=== PATIENT | female | born 1970 | race Caucasian/White ===

== ENCOUNTER 2024-07-21 14:53 | Inpatient (IN) | payer OTHER ==
[~2024-07-21] VITALS: Ht 157.5 cm; Wt 72.5 kg
--- NOTE | 2024-07-21 15:21 | ED.PDOC ---
HPI Comments 53 y/o F presents with c/o left-sided chest and shoulder pain. Patient is a poor historian. She reports on progressively worsening symptoms following initial, unprovoked onset 2 days ago. Describes chest pain as waning and shoulder pain being constant. Endorses on chest and shoulder pain being "sharp" in quality and rates it a 6/10 in severity. Shoulder pain worsens when leaning towards her left-side and, occasionally, radiates to her left arm. States on feeling similar to when she had a PE 10 years ago, with exception of shortness of breath symptom absence. Reports no relief or improvement of symptoms with pain medication use. Denies having any nausea, vomiting, shortness of breath, or further associated symptoms. Vitals: temperature of 97.8F, pulse rate of 89, respiratory rate of 20, blood pressure of 141/97, SpO2 of 96%RA Past medical history: PE, Graves' disease, hypothyroidism Past surgical history: denies HPI: Poor Historian. REVIEW OF SYSTEMS: CONSTITUTIONAL: Denies acute: fever, diaphoresis, chills, generalized weakness. HEAD: Denies acute: headache, photophobia Eyes: Denies acute: Double vision, vision loss, eye pain, eye discharge. EARS: Denies acute: tinnitus, hearing loss, ear discharge, ear pain, THROAT: Denies acute: sore throat, swelling, difficulty swallowing , pain with swallowing, change in voice. NECK: Denies acute: neck pain, neck swelling, stiff neck. HEART: Denies acute : palpitations, LUNGS: Denies acute: SOB, wheezing, cough, hemoptysis ABDOMEN: Denies acute: abdominal pain, Nausea, Vomiting, diarrhea, melena , hematemesis, hematochezia SKIN: Denies acute: rash, redness, lesions, itchiness. EXTREMITIES: Denies acute: calf pain, numbness, tingling, weakness, Denies acute: Low back pain. Neuro: Denies acute: focal neurological deficit, motor or sensory focal neurological deficit, tremors, seizure like activity, confusion, dizziness, change in mental status, loss of bowel or bladder function, cauda equina like symptoms. : Denies acute: dysuria, hematuria, flank pain, increase in urinary frequency. PSYCH: Denies acute: hallucination, suicidal ideation, homicidal ideation. FEMALE: Denies acute: abnormal vaginal bleeding, foul odor, unusual discharge. PHYSICAL EXAM: General: ---mild-----acute distress, awake and alert. Head: normocephalic, atraumatic. Neck: supple, trachea is midline, no swelling. Throat: Normal phonation. Eyes:, no erythema, no purulent discharge, no proptosis, no icterus. Heart: regular rate, regular rhythm, no significant murmur appreciated. Lungs: no apparent respiratory distress, Able to speak in full sentences. No wheezing, no rhonchi, no crackles. No stridors Clear to auscultation bilaterally. Abdomen: non tender to palpation, non distended, soft, no guarding, no rebound, + bowel sounds. Neuro: Awake, Alert, oriented to name, self, situation, follows commands GCS=15. Speech is normal. Skin: no petechia, no purpura, no cyanosis, non-pale, not jaundice. Lower extremities: --no - Pitting edema no deformity, no focal swelling, no calf TTP. Makes eye contact. moves all four extremities. Face: no apparent facial droop. Ambulating in the ED independently. ED COURSE: Chief Complaint: Chest Pain Time Seen by MD: 15:00 Reviewed Notes: Nurses Notes, Medications, Allergies Allergies: Coded Allergies: NO KNOWN ALLERGIES (Unverified , 07/21/24) Information Source: Patient Mode of Arrival: Ambulatory EKG EKG : Pulse Rate (adult): 77 [place]: Normal Cardiac Rhythm: NSR Block: None Hypertrophy: None ST: Normal Was a procedure done? Was a procedure done?: No CP Differential Dx Differential Diagnosis: N/A Differential Diagnosis: Other (Ddx include but not limitied to gastritis, musculoskeletal pain, radiculopathy, atypical chest pain, dissection, aneurysm, ACS, unstable angina, hiatal hernia, GERD, anxiety, costochondritis, PE, pneumothroax, neoplasm, cardiac ischemia, drug abuse, anemia.) X-Ray, Labs, Meds, VS Vital Signs Date Time Temp Pulse Resp B/P (MAP) Pulse Ox O2 Delivery O2 Flow Rate FiO2 07/21/24 18:38 77 07/21/24 17:55 74 07/21/24 15:56 77 07/21/24 15:04 97.8 89 20 141/97 (112) 96 97.8 07/21/24 15:03 80 Lab Test 07/21/24 18:00 07/21/24 16:00 07/21/24 15:07 Range/Units Troponin I High Sensitivity < 3 L < 3 L < 3 L </=34 ng/L White Blood Count 9.1 4.4-10.8 10^3/uL Red Blood Count 4.93 4.0-5.20 10^6/uL Hemoglobin 15.0 12.2-16.2 g/dL Hematocrit 44.6 36.0-46.0 % Mean Corpuscular Volume 90.5 80.0-100.0 fL Mean Corpuscular Hemoglobin 30.5 28.0-32.0 pg Mean Corpuscular Hemoglobin Concent 33.7 32.0-36.0 g/dL Red Cell Distribution Width 13.4 11.8-14.3 % Platelet Count 394 140-450 10^3/uL Mean Platelet Volume 7.7 6.9-10.8 fL Neutrophils (%) (Auto) 70.1 37.0-80.0 % Lymphocytes (%) (Auto) 22.0 10.0-50.0 % Monocytes (%) (Auto) 6.8 0.0-12.0 % Eosinophils (%) (Auto) 0.8 0.0-7.0 % Basophils (%) (Auto) 0.3 0.0-2.0 % Neutrophils # (Auto) 6.4 1.6-8.6 10 ^3/uL Lymphocytes # (Auto) 2.0 0.4-5.4 10 ^3/uL Monocytes # (Auto) 0.6 0-1.3 10 ^3/uL Eosinophils # (Auto) 0.1 0-0.8 10 ^3/uL Basophils # (Auto) 0 0-0.2 10 ^3/uL Nucleated Red Blood Cells 0.0 % D-Dimer, Quantitative 0.26 0.0-0.49 mg/L FEU Sodium Level 143 136-145 mmol/L Potassium Level 4.4 3.5-5.1 mmol/L Chloride Level 108 H 98-107 mmol/L Carbon Dioxide Level 27 20-31 mmol/L Anion Gap 8 5-15 Blood Urea Nitrogen 19 9-23 mg/dL Creatinine 0.96 0.550-1.02 mg/dL Glomerular Filtration Rate Calc 71 >90 mL/min BUN/Creatinine Ratio 19.8 10.0-20.0 Serum Glucose 107 H 74-106 mg/dL Lactic Acid Level 1.1 0.4-2.0 mmol/L Calcium Level 10.4 8.7-10.4 mg/dL Total Bilirubin 0.5 0.2-1.0 mg/dL Aspartate Amino Transferase (AST) 23 13-40 U/L Alanine Aminotransferase (ALT) 23 7-40 U/L Alkaline Phosphatase 71 46-116 U/L B-Type Natriuretic Peptide 22.73 0-100 pg/mL Total Protein 7.2 5.7-8.2 g/dL Albumin 4.8 3.2-4.8 g/dL [place] [id number] Ph: [phone] DIAGNOSTIC IMAGING Diagnostic Imaging Report : [id number] Signed PATIENT: ALICE DE JESUS ACCT: [id number] UNIT: [id number] : 1970 LOC: ER ROOM / BED: / AGE / SEX: 53 / F ADM STATUS: REG ER SERVICE [id number] ORDERING PHYSICIAN: MESHA FARRAR DO PROCEDURE(s): CXRP - CHEST PORTABLE REASON: cp ORDER NUMBER(s): [id number], ACCESSION NUMBER(s): [id number] EXAM: XY CHEST PORTABLE TECHNIQUE: Single frontal chest radiograph CLINICAL HISTORY: cp COMPARISON: None Findings/Impression: Frontal chest radiograph demonstrates no acute osseous or superficial soft tissue abnormalities. The trachea is midline. The cardiac silhouette and mediastinum are within normal limits. No pneumothorax, pleural effusions, or consolidations. ATED BY: ALANA TROTTER DO DICTATED DATE/TIME: 07/21/241554 SIGNED BY: ALANA TROTTER DO SIGNED DATE/TIME: 07/21/241554 CC: Time of 1ST Reevaluation: 15:30 Reevaluation 1ST: Unchanged Patient Education/Counseling: Diagnosis, Treatment Family Education/Counseling: No Family Present Comments Patient presented with the above HPI.---cardiac---workup was initiated. patient was found with the above mentioned diagnosis. the following medications were ordered: please refer to order lists of meds and tests obtained by myself Dr. Farrar. Patient ED course and VS have been stabilized. Patient has been reassessed in the ED and remained in a stable condition. Pertinent incidental findings were discussed with the patient and/or family. Patient/family voices understanding and is agreeable with plan. Patient has been observed in the ED adequate length of time to insure improvement/stability. Escalation of care considered: Consideration of escalation to observation or admission Patient was ADMITTED to the medicine team for further evaluation and treatment of their presentation. All the reports of any imaging studies that were ordered by myself were reviewed by myself. Departure 1 Departure Time of Disposition: 15:26 Impression: Primary Impression: Chest pain Disposition: ADMITTED INPATIENT Admit to: Tele Condition: Guarded Discharged With: Self Critical Care Note Critical Care Time?: No Heart Score Heart Score: Heart Score Response (Comments) Value History Moderate Suspicious 1 EKG Normal 0 Age 45-64 1 Risk Factors >3 or Hx ASHD 2 Troponin Normal limit 0 Total 4 I personally scribed for MESHA FARRAR DO ([email or web address]) on 07/21/24 at 15:21. Electronically submitted by Blake Napier ([email or web address]). I personally scribed for MESHA FARRAR DO ([email or web address]) on 07/21/24 at 15:23. Electronically submitted by Blake Napier ([email or web address]). I personally scribed for MESHA FARRAR DO ([email or web address]) on 07/21/24 at 16:11. Electronically submitted by Blake Napier ([email or web address]). I personally scribed for MESHA FARARR DO ([email or web address]) on 07/21/24 at 18:38. Electronically submitted by Blake Napier ([email or web address]). MESHA FARRAR DO Jul 21, 2024 15:21
[2024-07-21 15:47] LABS: Basophils # (auto) 0 10 ^3/uL (0-0.2); Basophils % (auto) 0.3 % (0.0-2.0); Eosinophils # (auto) 0.1 10 ^3/uL (0-0.8); Eosinophils % (auto) 0.8 % (0.0-7.0); Hematocrit 44.6 % (36.0-46.0); Mean Corpuscular Hemoglobin 30.5 pg (28.0-32.0); Mean Corpuscular Hgb Conc. 33.7 g/dL (32.0-36.0); Mean Corpuscular Volume 90.5 fL (80.0-100.0); Monocytes # (auto) 0.6 10 ^3/uL (0-1.3); Monocytes % (auto) 6.8 % (0.0-12.0); Neutrophils # (auto) 6.4 10 ^3/uL (1.6-8.6); Neutrophils % (auto) 70.1 % (37.0-80.0); Platelet Count (auto) 394 10^3/uL (140-450); Red Blood Cells 4.93 10^6/uL (4.0-5.20); Red Cell Distribution Width 13.4 % (11.8-14.3); White Blood Cell 9.1 10^3/uL (4.4-10.8)
--- NOTE | 2024-07-21 15:57 | DVH ---
EXAM: XY CHEST PORTABLE TECHNIQUE: Single frontal chest radiograph CLINICAL HISTORY: cp COMPARISON: None Findings/Impression: Frontal chest radiograph demonstrates no acute osseous or superficial soft tissue abnormalities. The trachea is midline. The cardiac silhouette and mediastinum are within normal limits. No pneumothorax, pleural effusions, or consolidations.
--- NOTE | 2024-07-21 15:57 | ECG ---
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
[2024-07-21 16:01] LABS: Alanine Aminotransferase 23 U/L (7-40); Albumin 4.8 g/dL (3.2-4.8); Alkaline Phosphatase 71 U/L (46-116); Anion Gap 8 (5-15); Aspartate Aminotransferase 23 U/L (13-40); BUN/Creatinine Ratio 19.8 (10.0-20.0); Bilirubin, Total 0.5 mg/dL (0.2-1.0); Blood Urea Nitrogen 19 mg/dL (9-23); Calcium 10.4 mg/dL (8.7-10.4); Carbon Dioxide 27 mmol/L (20-31); Chloride 108 mmol/L (98-107); Glucose 107 mg/dL (74-106); Potassium 4.4 mmol/L (3.5-5.1); Sodium 143 mmol/L (136-145); Total Protein 7.2 g/dL (5.7-8.2)
--- NOTE | 2024-07-21 17:57 | ECG ---
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
--- NOTE | 2024-07-21 18:56 | DVHHP2 ---
Admitting Diagnosis: Chest pain History of Present Illness 53 y/o F presents with c/o left-sided chest and shoulder pain. She reports on progressively worsening symptoms following initial, unprovoked onset 2 days ago. Describes chest pain as waning and shoulder pain being constant. Endorses on chest and shoulder pain being "sharp" in quality and rates it a 6/10 in severity. Shoulder pain worsens when leaning towards her left-side and, occasionally, radiates to her left arm. States on feeling similar to when she had a PE 10 years ago, with exception of shortness of breath symptom absence. Reports no relief or improvement of symptoms with pain medication use. Denies having any nausea, vomiting, shortness of breath, or further associated symptoms. Vitals: temperature of 97.8F, pulse rate of 89, respiratory rate of 20, blood pressure of 141/97, SpO2 of 96%RA Past medical history: PE, Graves' disease, hypothyroidism Past surgical history: denies REVIEW OF SYSTEMS: CONSTITUTIONAL: Denies acute: fever, diaphoresis, chills, generalized weakness. HEAD: Denies acute: headache, photophobia Eyes: Denies acute: Double vision, vision loss, eye pain, eye discharge. EARS: Denies acute: tinnitus, hearing loss, ear discharge, ear pain, THROAT: Denies acute: sore throat, swelling, difficulty swallowing , pain with swallowing, change in voice. NECK: Denies acute: neck pain, neck swelling, stiff neck. HEART: Denies acute : palpitations, LUNGS: Denies acute: SOB, wheezing, cough, hemoptysis ABDOMEN: Denies acute: abdominal pain, Nausea, Vomiting, diarrhea, melena , hematemesis, hematochezia SKIN: Denies acute: rash, redness, lesions, itchiness. EXTREMITIES: Denies acute: calf pain, numbness, tingling, weakness, Denies acute: Low back pain. Neuro: Denies acute: focal neurological deficit, motor or sensory focal neurological deficit, tremors, seizure like activity, confusion, dizziness, change in mental status, loss of bowel or bladder function, cauda equina like symptoms. : Denies acute: dysuria, hematuria, flank pain, increase in urinary frequency. PSYCH: Denies acute: hallucination, suicidal ideation, homicidal ideation. FEMALE: Denies acute: abnormal vaginal bleeding, foul odor, unusual discharge. Allergies: Coded Allergies: NO KNOWN ALLERGIES (Unverified , 07/21/24) Current Medications Current Medications Medications (Trade) Dose Ordered Sig/Erlinda Route PRN Reason Start Time Stop Time Status Last Admin Levothyroxine Sodium (Synthroid Tablet) 125 mcg DAILY PO 07/22/24 10:00 UNV Sodium Chloride (Saline Lock Ns) 10 ml Q8HR IV 07/21/24 22:00 UNV Docusate Sodium (Colace Capsule) 100 mg BIDPRN PRN PO FOR CONSTIPATION 07/21/24 19:00 UNV Acetaminophen (Tylenol Tablet) 650 mg Q6HP PRN PO PAIN SCALE 1-3 OR TEMP>100.4 07/21/24 19:00 UNV Acetaminophen/ Hydrocodone Bitart ([place] 5/325MG Tab) 1 tab Q4HP PRN PO MODERATE PAIN (4-6 PAIN SCALE) 07/21/24 19:00 UNV Hydromorphone HCl (Dilaudid Injection) 0.5 mg Q4HP PRN IV SEVERE PAIN (7-10 PAIN SCALE) 07/21/24 19:00 UNV Ondansetron HCl (Zofran) 4 mg Q4HP PRN IV NAUSEA / VOMITING 07/21/24 19:00 UNV Enoxaparin Sodium (Lovenox) 40 mg DAILY SC 07/22/24 10:00 UNV Nitroglycerin (Ntrostat Sublingual) 0.4 mg Q5MINP PRN SL FOR CHEST PAIN 07/21/24 19:00 UNV Morphine Sulfate 2 mg Q30M PRN IV FOR CHEST PAIN 07/21/24 19:00 UNV Vital Signs Vital Signs Date Time Temp Pulse Resp B/P (MAP) Pulse Ox O2 Delivery O2 Flow Rate FiO2 07/21/24 18:38 77 07/21/24 15:04 97.8 20 141/97 (112) 96 97.8 Physical Exam Generally-73 years old woman, well nourished well developed. Moderate distress HEENT-atraumatic normocephalic Heart-regular rate and rhythm Lungs clear to auscultate bilaterally Abdomen soft nontender nondistended Musculoskeletal-no edema cyanosis Neuro-AO x3, no focal deficits Results Labs Test 07/21/24 18:00 07/21/24 15:07 Range/Units Troponin I High Sensitivity < 3 L </=34 ng/L White Blood Count 9.1 4.4-10.8 10^3/uL Red Blood Count 4.93 4.0-5.20 10^6/uL Hemoglobin 15.0 12.2-16.2 g/dL Hematocrit 44.6 36.0-46.0 % Mean Corpuscular Volume 90.5 80.0-100.0 fL Mean Corpuscular Hemoglobin 30.5 28.0-32.0 pg Mean Corpuscular Hemoglobin Concent 33.7 32.0-36.0 g/dL Red Cell Distribution Width 13.4 11.8-14.3 % Platelet Count 394 140-450 10^3/uL Mean Platelet Volume 7.7 6.9-10.8 fL Neutrophils (%) (Auto) 70.1 37.0-80.0 % Lymphocytes (%) (Auto) 22.0 10.0-50.0 % Monocytes (%) (Auto) 6.8 0.0-12.0 % Eosinophils (%) (Auto) 0.8 0.0-7.0 % Basophils (%) (Auto) 0.3 0.0-2.0 % Neutrophils # (Auto) 6.4 1.6-8.6 10 ^3/uL Lymphocytes # (Auto) 2.0 0.4-5.4 10 ^3/uL Monocytes # (Auto) 0.6 0-1.3 10 ^3/uL Eosinophils # (Auto) 0.1 0-0.8 10 ^3/uL Basophils # (Auto) 0 0-0.2 10 ^3/uL Nucleated Red Blood Cells 0.0 % D-Dimer, Quantitative 0.26 0.0-0.49 mg/L FEU Sodium Level 143 136-145 mmol/L Potassium Level 4.4 3.5-5.1 mmol/L Chloride Level 108 H 98-107 mmol/L Carbon Dioxide Level 27 20-31 mmol/L Anion Gap 8 5-15 Blood Urea Nitrogen 19 9-23 mg/dL Creatinine 0.96 0.550-1.02 mg/dL Glomerular Filtration Rate Calc 71 >90 mL/min BUN/Creatinine Ratio 19.8 10.0-20.0 Serum Glucose 107 H 74-106 mg/dL Lactic Acid Level 1.1 0.4-2.0 mmol/L Calcium Level 10.4 8.7-10.4 mg/dL Total Bilirubin 0.5 0.2-1.0 mg/dL Aspartate Amino Transferase (AST) 23 13-40 U/L Alanine Aminotransferase (ALT) 23 7-40 U/L Alkaline Phosphatase 71 46-116 U/L B-Type Natriuretic Peptide 22.73 0-100 pg/mL Total Protein 7.2 5.7-8.2 g/dL Albumin 4.8 3.2-4.8 g/dL Primary Diagnosis Chest pain to back rule out ACS Plan EKG shows sinus rhythm no ST years segment changes Troponin negative Patient says the pain similar to prior PE 10 years ago D-dimer negative Repeat D-dimer in the morning Check echo of the heart to rule out abnormal wall motion resume Synthroid 125 mg daily Cardiac diet Full code Lovenox for DVT PPI for GI prophylaxis Plan discussed with: Patient Date of Service: Jul 21, 2024 Billing Provider: LUIS HANSON MD Common Visit Codes: 70182-[id number] INP/OBS CARE (MOD) LUIS HANSON MD Jul 21, 2024 18:56
[2024-07-21] MEDS ORDERED: DOCUSATE SOD 100 MG CAP PO PRN (19:00)
[2024-07-21] MEDS ORDERED: HYDROmorphone HCL 2 MG/ML VL/or syr IV PRN (19:00)
[2024-07-21] MEDS ORDERED: MORPHINE SULFATE INJ 2 MG/ml SYRG IV PRN (19:00)
[2024-07-21] MEDS ORDERED: NITROGLYCERIN 0.4 MG SL TAB SL PRN (19:00)
[2024-07-21] MEDS ORDERED: ONDANSETRON HCL 4 MG/2 ML VIAL IV PRN (19:00)
[2024-07-21] MEDS ORDERED: ACETAMINOPHEN 325 MG TAB PO PRN (19:00)
[2024-07-21 21:16] VITALS: O2SAT 97
[2024-07-21] MEDS: SODIUM CHLOR 0.9% PF (SALINE LOCK) 10ML VIAL/SYR IV SCH (22:01)
[2024-07-21 22:36] VITALS: BP 144/86; PULSE 77; RESP 18; TEMP 97.6; O2SAT 100
[2024-07-21 22:59] VITALS: PULSE 77; RESP 18; O2SAT 100
[2024-07-21] MEDS ORDERED: LEVO-849 PO (23:03)
[2024-07-22] VITALS (7 sets, daily range): BP systolic 116–142; BP diastolic 70–94; PULSE 61–90; RESP 15–19; TEMP 96.4–98; O2SAT 95–98
[2024-07-22] MEDS: HYDROcodone-ACET 5/325MG TAB PO PRN (01:56)
[2024-07-22 07:11] LABS: Basophils # (auto) 0 10 ^3/uL (0-0.2); Basophils % (auto) 0.4 % (0.0-2.0); Eosinophils # (auto) 0.1 10 ^3/uL (0-0.8); Eosinophils % (auto) 1.4 % (0.0-7.0); Hematocrit 42.4 % (36.0-46.0); Hemoglobin 14.2 g/dL (12.2-16.2); Lymphocytes # (auto) 2.4 10 ^3/uL (0.4-5.4); Lymphocytes % (auto) 38.2 % (10.0-50.0); Mean Corpuscular Hemoglobin 30.1 pg (28.0-32.0); Mean Corpuscular Hgb Conc. 33.4 g/dL (32.0-36.0); Monocytes # (auto) 0.6 10 ^3/uL (0-1.3); Monocytes % (auto) 9.6 % (0.0-12.0); Neutrophils # (auto) 3.1 10 ^3/uL (1.6-8.6); Neutrophils % (auto) 50.4 % (37.0-80.0); Platelet Count (auto) 369 10^3/uL (140-450); Red Blood Cells 4.71 10^6/uL (4.0-5.20); Red Cell Distribution Width 13.1 % (11.8-14.3); White Blood Cell 6.2 10^3/uL (4.4-10.8)
[2024-07-22 07:17] LABS: Alanine Aminotransferase 19 U/L (7-40); Albumin 4.5 g/dL (3.2-4.8); Alkaline Phosphatase 59 U/L (46-116); Anion Gap 7 (5-15); Aspartate Aminotransferase 18 U/L (13-40); BUN/Creatinine Ratio 24.3 (10.0-20.0); Blood Urea Nitrogen 18 mg/dL (9-23); Carbon Dioxide 27 mmol/L (20-31); Glucose 90 mg/dL (74-106); Potassium 3.8 mmol/L (3.5-5.1); Sodium 142 mmol/L (136-145); Total Protein 6.8 g/dL (5.7-8.2)
[2024-07-22 07:18] LABS: Bilirubin, Total 0.7 mg/dL (0.2-1.0)
[2024-07-22 07:21] LABS: Chloride 108 mmol/L (98-107)
[2024-07-22] MEDS: LEVOTHYROXINE SODIUM 50 MCG TAB PO SCH (09:08)
[2024-07-22] MEDS: ENOXAPARIN SOD 40 MG/0.4 ML SYRINGE SC SCH (09:09)
--- NOTE | 2024-07-22 11:33 | DVHINCON2 ---
Date Seen: Jul 22, 2024 Referring Physician MD Yamilex Reason for Consultation Chest pain History of Present Illness This is a 53-year-old female patient who presents to the emergency room for chief complaint of chest pain. The patient reports that she began having chest pain two days prior to emergency room arrival. She describes the pain as unprovoked, intermittent, sharp in nature, beginning at her left scapula and radiating to the left side of her chest. Associated symptoms include shortness of breath. She came to the emergency room for further evaluation. Initial twelve lead electrocardiogram reveals normal sinus rhythm without any significant ST segment changes. Serial troponin levels have been negative. Significant past medical history includes dyslipidemia, pulmonary embolism, and Graves disease. Past Medical History Past medical history reviewed. No other significant than mentioned above. Past Surgical History Denies any previous surgeries Family History: Patient reports no known family medical history. Family History Family history reviewed. Social History Denies the use of tobacco, alcohol or illicit drugs. Allergies: Coded Allergies: NO KNOWN ALLERGIES (Unverified , 07/21/24) Home Meds Reported Medications Levothyroxine Sodium (SYNTHROID TABLET) 100 Mcg Tb, 125 MCG PO DAILY, TAB 07/21/24 Home Meds Home medications reviewed. Current Medications Current Medications Medications (Trade) Dose Ordered Sig/Erlinda Route PRN Reason Start Time Stop Time Status Last Admin Levothyroxine Sodium (Synthroid Tablet) 125 mcg DAILY PO 07/22/24 10:00 07/22/24 09:08 Sodium Chloride (Saline Lock Ns) 10 ml Q8HR IV 07/21/24 22:00 07/22/24 06:28 Docusate Sodium (Colace Capsule) 100 mg BIDPRN PRN PO FOR CONSTIPATION 07/21/24 19:00 Acetaminophen (Tylenol Tablet) 650 mg Q6HP PRN PO PAIN SCALE 1-3 OR TEMP>100.4 07/21/24 19:00 Acetaminophen/ Hydrocodone Bitart ([place] 5/325MG Tab) 1 tab Q4HP PRN PO MODERATE PAIN (4-6 PAIN SCALE) 07/21/24 19:00 07/22/24 09:26 Hydromorphone HCl (Dilaudid Injection) 0.5 mg Q4HP PRN IV SEVERE PAIN (7-10 PAIN SCALE) 07/21/24 19:00 Ondansetron HCl (Zofran) 4 mg Q4HP PRN IV NAUSEA / VOMITING 07/21/24 19:00 Enoxaparin Sodium (Lovenox) 40 mg DAILY SC 07/22/24 10:00 07/22/24 09:09 Nitroglycerin (Ntrostat Sublingual) 0.4 mg Q5MINP PRN SL FOR CHEST PAIN 07/21/24 19:00 Morphine Sulfate 2 mg Q30M PRN IV FOR CHEST PAIN 07/21/24 19:00 Review of Systems Constitutional: No symptom reported Ears, Nose, & Throat: No symptom reported Eyes: No symptom reported Neurological: No symptoms reported Pulmonary/Respiratory: Shortness of breath Cardiovascular: Chest pain Gastrointestinal: No symptom reported Genitourinary: No symptom reported Musculoskeletal: No symptom reported Skin: No symptom reported Psychiatric: No symptom reported Endocrine: No symptom reported Hematologic/Lymphatic: No symptom reported Vital Signs Vital Signs Date Time Temp Pulse Resp B/P (MAP) Pulse Ox O2 Delivery O2 Flow Rate FiO2 07/22/24 09:17 97.6 66 15 137/89 (105) 97 97.6 07/21/24 22:59 Room Air* 0 21 Physical Exam General Appearance: Cooperative. Well-developed. Well-nourished. No acute distress. Pulmonary/Respiratory: Clear, bilateral breaths sounds. Cardiovascular/Chest: Regular rate and rhythm. Peripheral Pulses: 2+ Radial (R). 2+ Radial (L). 2+ Pedal (R). 2+ Pedal (L) Abdominal Exam: Normal bowel sounds. Ankle Exam: Negative ankle edema Lower extremities: Negative lower extremity edema Neuro/Mental Status: A/OX4, coherent. Thoughts/Psych: Normal thought pattern. Appropriate mood and affect. Good judgment and insight. Appearance: No acute distress. Skin Exam: Normal inspection. Normal color. Warm and dry. Labs/Diagnostic Data Labs Test 07/22/24 06:17 07/21/24 18:00 07/21/24 15:07 Range/Units White Blood Count 6.2 # 4.4-10.8 10^3/uL Red Blood Count 4.71 4.0-5.20 10^6/uL Hemoglobin 14.2 12.2-16.2 g/dL Hematocrit 42.4 36.0-46.0 % Mean Corpuscular Volume 90.0 80.0-100.0 fL Mean Corpuscular Hemoglobin 30.1 28.0-32.0 pg Mean Corpuscular Hemoglobin Concent 33.4 32.0-36.0 g/dL Red Cell Distribution Width 13.1 11.8-14.3 % Platelet Count 369 140-450 10^3/uL Mean Platelet Volume 7.4 6.9-10.8 fL Neutrophils (%) (Auto) 50.4 37.0-80.0 % Lymphocytes (%) (Auto) 38.2 10.0-50.0 % Monocytes (%) (Auto) 9.6 0.0-12.0 % Eosinophils (%) (Auto) 1.4 0.0-7.0 % Basophils (%) (Auto) 0.4 0.0-2.0 % Neutrophils # (Auto) 3.1 1.6-8.6 10 ^3/uL Lymphocytes # (Auto) 2.4 0.4-5.4 10 ^3/uL Monocytes # (Auto) 0.6 0-1.3 10 ^3/uL Eosinophils # (Auto) 0.1 0-0.8 10 ^3/uL Basophils # (Auto) 0 0-0.2 10 ^3/uL Nucleated Red Blood Cells 0.0 % D-Dimer, Quantitative 0.24 0.0-0.49 mg/L FEU Sodium Level 142 136-145 mmol/L Potassium Level 3.8 3.5-5.1 mmol/L Chloride Level 108 H 98-107 mmol/L Carbon Dioxide Level 27 20-31 mmol/L Anion Gap 7 5-15 Blood Urea Nitrogen 18 9-23 mg/dL Creatinine 0.74 0.550-1.02 mg/dL Glomerular Filtration Rate Calc 97 >90 mL/min BUN/Creatinine Ratio 24.3 H 10.0-20.0 Serum Glucose 90 74-106 mg/dL Calcium Level 10.0 8.7-10.4 mg/dL Total Bilirubin 0.7 0.2-1.0 mg/dL Aspartate Amino Transferase (AST) 18 13-40 U/L Alanine Aminotransferase (ALT) 19 7-40 U/L Alkaline Phosphatase 59 46-116 U/L Total Protein 6.8 5.7-8.2 g/dL Albumin 4.5 3.2-4.8 g/dL Troponin I High Sensitivity < 3 L </=34 ng/L Lactic Acid Level 1.1 0.4-2.0 mmol/L B-Type Natriuretic Peptide 22.73 0-100 pg/mL Assessment Chest pain, rule out coronary ischemia Dyslipidemia History of pulmonary embolism History of Graves disease status post radioactive iodine Uncontrolled thyroid function Plan/Recommendation We will continue with the following plan/recommendations (Dr. Flynn): * Transthoracic echocardiogram reveals EF 65% * Chest pain protocol * HEART score: 2 points * Single antiplatelet therapy and lipid-lowering agent * DVT/VTE prophylaxis * Close Cardiac surveillance * Nuclear stress test Patient seen and examined at bedside with . recommends for patient to undergo nuclear stress test. Plan discussed with the patient in full detail, patient is agreeable. We will schedule the patient for a nuclear stress test on 07/23/2024 at soonest availability. Thank you for allowing us to care for this patient. Please call with any questions or concerns. Critical care time spent: 40 minutes This medical document was created using an electronic medical record system with voice recognition software and computerized dictation system. Although this document has been carefully reviewed, there might still be some phonetic and typographical errors. Occasional wrong-word or ``sound-alike substitutions may have occurred due to the inherent limitations of voice recognition software. These areas are purely typographical due to imperfections of the software programs and do not reflect any compromise in the patient's medical care. Please read the chart carefully and recognize, using context, where these substitutions have occurred. Plan discussed with: Patient NYHA Physical activity limitations: NA Date of Service: Jul 22, 2024 Billing Provider: ELYSE ARANDA Cardiology Common Codes: 32745-[id number] INP/OBS CARE (High) Cardiology Consultation Codes: 34021-[id number] CONSULT <45MIN ELYSE ARANDA Jul 22, 2024 11:33
[2024-07-22 13:02] LABS: Magnesium 2.2 mg/dL (1.6-2.6)
--- NOTE | 2024-07-22 14:20 | DVHSR ---
APPROVED REPORT EXAM: Two-dimensional and M-mode echocardiogram with Doppler and color Doppler. Blood Pressure: 116/70 mmHg INDICATION Chest Pain R/O ACS RISK FACTORS Height: 5'2", Weight: 155 DIMENSIONS LVDd4.4 (3.8-5.7cm)LA (2D)3.1 (1.9-4.0cm)Aortic Root2.8 (2.0-3.7cm) LVDs3.0 (2.5-4.0cm)LA (MM) (1.9-4.0cm)Aortic Cusp Exc1.7 (1.5-2.0cm) EF (%) 60.0 (55-70%)Rt. Atrium3.1 (1.9-4.0cm)Asc. Aorta cm IVSd0.9 (0.7-1.1cm)RV (D)3.0 (1.8-2.4cm) PWd0.8 (0.7-1.1cm) Mitral Valve MitralMitral Stenosis E wave1.03m/sMV Mean GR.mmHg A wave0.95m/sMV Peak GR.mmHg E/A ratio1.12D MVAcm2 DECEL [id number] 1/2 Timems Aortic Valve Aortic ValveAortic Stenosis V11.16m/Francine Mean GR.4mmHg V21.41m/Francine Peak GR.8mmHg LVOT Diameter1.8 (1.8-2.4cm)Doppler AVA2.09cm2 Pulmonic Valve V21.03m/s Conclusion LV EF IS 65% AND IS NORMAL NORMAL VALVES NO EFFUSION NORMAL RV FUNCTION
[2024-07-22 15:37] LABS: Amphetamine Screen, Urine Neg (NEGATIVE); Barbiturate Scree,Urine Neg (NEGATIVE); Benzodiazephine Screen, Urine Neg (NEGATIVE); Cannabinoid Screen, Urine Neg (NEGATIVE); Cocaine Screen, Urine Neg (NEGATIVE); Opiate Scree,Urine Pos (NEGATIVE); Phencyclidine Screen, Urine Neg (NEGATIVE)
[2024-07-22] MEDS: ATORVASTATIN 20 MG TAB PO SCH (21:33)
--- NOTE | 2024-07-22 21:45 | DVHPN2 ---
Subjective The patient seen and examined at bedside. Still have chest pain. Reviewed: Care Plan, H&P, Labs, Medications, Previous Orders, Radiology Changes from previous H/P or p: No Changes Objective Vitals Vital Signs Date Time Temp Pulse Resp B/P (MAP) Pulse Ox O2 Delivery O2 Flow Rate FiO2 07/22/24 17:00 98.0 69 17 134/94 (107) 97 98.0 07/22/24 08:00 Room Air* 0 21 Intake/Output Intake and Output 07/22/24 07:00 Intake Total 240 ml Balance 240 ml Intake Oral 240 ml # Voids 2 General Appearance: Alert, Cooperative, No acute distress HEENT: Atraumatic, PERRLA, EOMI, Mucous membr. moist/pink Neck: Supple Lungs: Clear to auscultation, Normal air movement Cardiovascular: Regular rate, Normal S1, Normal S2, No murmurs, Gallops, Rubs Abdomen: Normal bowel sounds, Soft, No tenderness Neuro: Cranial nerves 3-12 NL Psych/Mental Status: Mental status NL Medications Current Medications Medications Dose Ordered Sig/Erlinda Route Start Time Stop Time Status Last Admin Dose Admin Levothyroxine Sodium 125 mcg DAILY PO 07/22/24 10:00 07/22/24 09:08 125 MCG Sodium Chloride 10 ml Q8HR IV 07/21/24 22:00 07/22/24 15:35 10 ML Docusate Sodium 100 mg BIDPRN PRN PO 07/21/24 19:00 Acetaminophen 650 mg Q6HP PRN PO 07/21/24 19:00 Acetaminophen/ Hydrocodone Bitart 1 tab Q4HP PRN PO 07/21/24 19:00 07/22/24 09:26 1 TAB Hydromorphone HCl 0.5 mg Q4HP PRN IV 07/21/24 19:00 Ondansetron HCl 4 mg Q4HP PRN IV 07/21/24 19:00 Enoxaparin Sodium 40 mg DAILY SC 07/22/24 10:00 07/22/24 09:09 40 MG Nitroglycerin 0.4 mg Q5MINP PRN SL 07/21/24 19:00 Morphine Sulfate 2 mg Q30M PRN IV 07/21/24 19:00 Atorvastatin Calcium 40 mg HS PO 07/22/24 22:00 Aspirin 81 mg DAILY PO 07/23/24 10:00 Laboratory Results Laboratory Tests 07/22/24 06:17 Chemistry Test 07/22/24 06:17 Albumin 4.5 g/dL (3.2-4.8) Calcium Level 10.0 mg/dL (8.7-10.4) Magnesium Level 2.2 mg/dL (1.6-2.6) Total Protein 6.8 g/dL (5.7-8.2) Coagulation Test 07/22/24 06:17 D-Dimer, Quantitative 0.24 mg/L FEU (0.0-0.49) Lipid panel Test 07/22/24 06:17 Cholesterol Level 273 mg/dL (< 200) H HDL Cholesterol 71 mg/dL (40-59) H Triglycerides Level 97 mg/dL (< 150) LFT Test 07/22/24 06:17 Alanine Aminotransferase (ALT) 19 U/L (7-40) Alkaline Phosphatase 59 U/L (46-116) Aspartate Amino Transferase (AST) 18 U/L (13-40) Total Bilirubin 0.7 mg/dL (0.2-1.0) HgA1c, TSH Test 07/22/24 06:17 Hemoglobin A1c 5.2 % A1C (<5.7) Thyroid Stimulating Hormone (TSH) 16.18 uIU/mL (0.55-4.78) H Labs and/or images reviewed: Labs reviewed by me Assessment/Plan Assessment/Plan Chest pain to back rule out ACS Hypothyroidism Plan: Continuing current management. Waiting for laboratory technologist to see the patient. We will follow up with echo. Continuing with Synthroid. This medical document was created using an electronic medical record system with [employer] direct computerized dictation system. Although this document has been carefully reviewed, there may still be some phonetic and typographical errors. These areas are purely typographical due to imperfections of the software programs, and do not reflect any compromise in the patient's medical care. Plan discussed with: Patient My Orders Orders - KAMILA OROPEZA MD Procedure Category Date Status Time Transfer Orders XFER 07/22/24 Transmitted 10:37 * Cardiology Consult CONS 07/22/24 Transmitted 10:38 Date of Service: Jul 22, 2024 Billing Provider: KAMILA OROPEZA MD Common Visit Codes: [id number] INP/OBS CARE(HIGH) KAMILA OROPEZA MD Jul 22, 2024 21:45
--- NOTE | 2024-07-22 22:50 | DVHINCON2 ---
Date Seen: Jul 22, 2024 Referring Physician MD Yamilex Reason for Consultation Chest pain History of Present Illness This is a 53-year-old female with a past medical history of dyslipidemia, pulmonary embolism, and Graves disease who presents to the emergency room for a complaint of chest pain. The patient reports that she began having chest pain two days prior to emergency room arrival. She describes the pain as unprovoked, intermittent, sharp in nature, beginning at her left scapula and radiating to the left side of her chest. Associated symptoms include shortness of breath. She came to the emergency room for further evaluation. Initial twelve lead electrocardiogram reveals normal sinus rhythm without any significant ST segment changes. erial troponin levels have been negative. Chest x-ray showed NAD. Patient was admitted to the hospital. I am asked to consult on this patient. Past Medical History Past medical history reviewed. No other significant than mentioned above. Past Surgical History Denies any previous surgeries Family History: Patient reports no known family medical history. Allergies: Coded Allergies: NO KNOWN ALLERGIES (Unverified , 07/21/24) Home Meds Reported Medications Levothyroxine Sodium (SYNTHROID TABLET) 100 Mcg Tb, 125 MCG PO DAILY, TAB 07/21/24 Current Medications Current Medications Medications (Trade) Dose Ordered Sig/Erlinda Route PRN Reason Start Time Stop Time Status Last Admin Levothyroxine Sodium (Synthroid Tablet) 125 mcg DAILY PO 07/22/24 10:00 07/22/24 09:08 Sodium Chloride (Saline Lock Ns) 10 ml Q8HR IV 07/21/24 22:00 07/22/24 06:28 Docusate Sodium (Colace Capsule) 100 mg BIDPRN PRN PO FOR CONSTIPATION 07/21/24 19:00 Acetaminophen (Tylenol Tablet) 650 mg Q6HP PRN PO PAIN SCALE 1-3 OR TEMP>100.4 07/21/24 19:00 Acetaminophen/ Hydrocodone Bitart (Republic 5/325MG Tab) 1 tab Q4HP PRN PO MODERATE PAIN (4-6 PAIN SCALE) 07/21/24 19:00 07/22/24 09:26 Hydromorphone HCl (Dilaudid Injection) 0.5 mg Q4HP PRN IV SEVERE PAIN (7-10 PAIN SCALE) 07/21/24 19:00 Ondansetron HCl (Zofran) 4 mg Q4HP PRN IV NAUSEA / VOMITING 07/21/24 19:00 Enoxaparin Sodium (Lovenox) 40 mg DAILY SC 07/22/24 10:00 07/22/24 09:09 Nitroglycerin (Ntrostat Sublingual) 0.4 mg Q5MINP PRN SL FOR CHEST PAIN 07/21/24 19:00 Morphine Sulfate 2 mg Q30M PRN IV FOR CHEST PAIN 07/21/24 19:00 Atorvastatin Calcium (Lipitor) 40 mg HS PO 07/22/24 22:00 UNV Aspirin 81 mg DAILY PO 07/23/24 10:00 UNV Review of Systems Constitutional: No symptom reported Ears, Nose, & Throat: No symptom reported Eyes: No symptom reported Neurological: No symptoms reported Pulmonary/Respiratory: Shortness of breath Cardiovascular: Chest pain Gastrointestinal: No symptom reported Genitourinary: No symptom reported Musculoskeletal: No symptom reported Skin: No symptom reported Psychiatric: No symptom reported Endocrine: No symptom reported Hematologic/Lymphatic: No symptom reported Vital Signs Vital Signs Date Time Temp Pulse Resp B/P (MAP) Pulse Ox O2 Delivery O2 Flow Rate FiO2 07/22/24 09:17 97.6 66 15 137/89 (105) 97 97.6 07/22/24 08:00 Room Air* 0 21 Physical Exam GENERAL: Alert and oriented x 3. No acute distress. EYES: PERRL, EOMI. Anicteric. HENT: Moist mucous membranes. LUNGS: Clear to auscultation bilaterally. CARDIOVASCULAR: Regular rate and rhythm. ABDOMEN: Soft, nontender and nondistended. EXTREMITIES: No edema. NEUROLOGIC: No focal neurological deficits. SKIN: Warm, dry. Labs/Diagnostic Data Labs Test 07/22/24 06:17 07/21/24 18:00 07/21/24 15:07 Range/Units White Blood Count 6.2 # 4.4-10.8 10^3/uL Red Blood Count 4.71 4.0-5.20 10^6/uL Hemoglobin 14.2 12.2-16.2 g/dL Hematocrit 42.4 36.0-46.0 % Mean Corpuscular Volume 90.0 80.0-100.0 fL Mean Corpuscular Hemoglobin 30.1 28.0-32.0 pg Mean Corpuscular Hemoglobin Concent 33.4 32.0-36.0 g/dL Red Cell Distribution Width 13.1 11.8-14.3 % Platelet Count 369 140-450 10^3/uL Mean Platelet Volume 7.4 6.9-10.8 fL Neutrophils (%) (Auto) 50.4 37.0-80.0 % Lymphocytes (%) (Auto) 38.2 10.0-50.0 % Monocytes (%) (Auto) 9.6 0.0-12.0 % Eosinophils (%) (Auto) 1.4 0.0-7.0 % Basophils (%) (Auto) 0.4 0.0-2.0 % Neutrophils # (Auto) 3.1 1.6-8.6 10 ^3/uL Lymphocytes # (Auto) 2.4 0.4-5.4 10 ^3/uL Monocytes # (Auto) 0.6 0-1.3 10 ^3/uL Eosinophils # (Auto) 0.1 0-0.8 10 ^3/uL Basophils # (Auto) 0 0-0.2 10 ^3/uL Nucleated Red Blood Cells 0.0 % D-Dimer, Quantitative 0.24 0.0-0.49 mg/L FEU Sodium Level 142 136-145 mmol/L Potassium Level 3.8 3.5-5.1 mmol/L Chloride Level 108 H 98-107 mmol/L Carbon Dioxide Level 27 20-31 mmol/L Anion Gap 7 5-15 Blood Urea Nitrogen 18 9-23 mg/dL Creatinine 0.74 0.550-1.02 mg/dL Glomerular Filtration Rate Calc 97 >90 mL/min BUN/Creatinine Ratio 24.3 H 10.0-20.0 Serum Glucose 90 74-106 mg/dL Hemoglobin A1c 5.2 <5.7 % A1C Calcium Level 10.0 8.7-10.4 mg/dL Magnesium Level 2.2 1.6-2.6 mg/dL Total Bilirubin 0.7 0.2-1.0 mg/dL Aspartate Amino Transferase (AST) 18 13-40 U/L Alanine Aminotransferase (ALT) 19 7-40 U/L Alkaline Phosphatase 59 46-116 U/L Total Protein 6.8 5.7-8.2 g/dL Albumin 4.5 3.2-4.8 g/dL Triglycerides Level 97 < 150 mg/dL Cholesterol Level 273 H < 200 mg/dL LDL Cholesterol 189 H < 100 mg/dL HDL Cholesterol 71 H 40-59 mg/dL Thyroid Stimulating Hormone (TSH) 16.18 H 0.55-4.78 uIU/mL Troponin I High Sensitivity < 3 L </=34 ng/L Lactic Acid Level 1.1 0.4-2.0 mmol/L B-Type Natriuretic Peptide 22.73 0-100 pg/mL Assessment Chest pain, rule out coronary ischemia. Dyslipidemia. History of pulmonary embolism. History of Graves disease status post radioactive iodine. Uncontrolled thyroid function. Plan/Recommendation I agree with your ongoing assessment and care of plan. Patient has been seen by Jud Smalls NP on my behalf, her and I discussed the plan with the patient. Recommended for patient to undergo nuclear stress test. Plan discussed with the patient in full detail, patient is agreeable. We will schedule the patient for a nuclear stress test on 07/23/2024 at soonest availability. Transthoracic echocardiogram reveals EF 65%. Chest pain protocol. HEART score: 2 points. Single antiplatelet therapy and lipid-lowering agent. DVT/VTE prophylaxis. Close Cardiac surveillance. Nuclear stress test Additional plan as per the hospital course. Plan discussed with: Patient NYHA Physical activity limitations: NA Date of Service: Jul 22, 2024 Billing Provider: DANIEL ARRIOLA MD Cardiology Common Codes: [id number] INP/OBS CARE (High) Cardiology Consultation Codes: [id number] CONSULT <45MIN DANIEL ARRIOLA MD Jul 22, 2024 14:38
[2024-07-23] VITALS (10 sets, daily range): BP systolic 104–135; BP diastolic 62–87; PULSE 56–84; RESP 16–20; TEMP 96.4–99.4; O2SAT 95–99
[2024-07-23 06:58] LABS: Basophils # (auto) 0 10 ^3/uL (0-0.2); Basophils % (auto) 0.6 % (0.0-2.0); Eosinophils # (auto) 0.1 10 ^3/uL (0-0.8); Eosinophils % (auto) 2.6 % (0.0-7.0); Hematocrit 41.9 % (36.0-46.0); Lymphocytes # (auto) 2.3 10 ^3/uL (0.4-5.4); Lymphocytes % (auto) 43.3 % (10.0-50.0); Mean Corpuscular Hemoglobin 30.3 pg (28.0-32.0); Mean Corpuscular Hgb Conc. 33.4 g/dL (32.0-36.0); Mean Corpuscular Volume 90.8 fL (80.0-100.0); Monocytes # (auto) 0.5 10 ^3/uL (0-1.3); Monocytes % (auto) 9.8 % (0.0-12.0); Neutrophils # (auto) 2.3 10 ^3/uL (1.6-8.6); Neutrophils % (auto) 43.7 % (37.0-80.0); Nucleated Red Blood Cells % 0.1 %; Platelet Count (auto) 346 10^3/uL (140-450); Red Blood Cells 4.61 10^6/uL (4.0-5.20); Red Cell Distribution Width 13.6 % (11.8-14.3); White Blood Cell 5.3 10^3/uL (4.4-10.8)
[2024-07-23 07:11] LABS: Alanine Aminotransferase 17 U/L (7-40); Albumin 4.2 g/dL (3.2-4.8); Alkaline Phosphatase 56 U/L (46-116); Anion Gap 8 (5-15); Aspartate Aminotransferase 17 U/L (13-40); BUN/Creatinine Ratio 24.1 (10.0-20.0); Blood Urea Nitrogen 19 mg/dL (9-23); Calcium 10.3 mg/dL (8.7-10.4); Carbon Dioxide 28 mmol/L (20-31); Glucose 94 mg/dL (74-106); Potassium 4.5 mmol/L (3.5-5.1); Sodium 144 mmol/L (136-145); Total Protein 6.4 g/dL (5.7-8.2)
[2024-07-23 07:12] LABS: Bilirubin, Total 0.6 mg/dL (0.2-1.0)
[2024-07-23 07:14] LABS: Chloride 108 mmol/L (98-107)
[2024-07-23] MEDS: REGADENOSON 0.4 MG/5 ML SYRG IV ONE ×2 (08:30→14:15)
[2024-07-23 10:18] LABS: Free T3 2.18 pg/mL (2.3-4.2)
[2024-07-23 10:19] LABS: Free T4 (Free Thyroxine) 0.98 ng/dL (0.89-1.76)
--- NOTE | 2024-07-23 10:52 | ECG ---
[facility] Test Date: 2024-07-21 Test Time: 15:03:05 Pat Name: ALICE DE JESUS Department: er Room: [address] [place] [address] 3 Gender: F Dining Service Supervisor: ann-marie : 1970 Requested By: MESHA FARRAR Order Number: [id number] Reading MD: Morales Florian Measurements Intervals [place] Rate: 80 P: 37 WI: 153 QRS: -32 QRSD: 95 T: 80 QT: 384 QTc: 443 Interpretive Statements Sinus rhythm Left axis deviation Abnormal R-wave progression, late transition Nonspecific T abnormalities, lateral leads Electronically Signed On 07-25-2024 17:05:50 PDT by Morales Florian Please click the below link to view image of tracing.
--- NOTE | 2024-07-23 11:25 | DVHPN2 ---
Subjective The patient seen and examined at bedside. Still have chest pain. Reviewed: Care Plan, H&P, Labs, Medications, Previous Orders, Radiology Changes from previous H/P or p: No Changes Objective Vitals Vital Signs Date Time Temp Pulse Resp B/P (MAP) Pulse Ox O2 Delivery O2 Flow Rate FiO2 07/23/24 09:00 98.1 69 17 127/82 (97) 99 98.1 07/23/24 08:00 Room Air* 0 21 Intake/Output Intake and Output 07/23/24 07:00 Intake Total 1740 ml Balance 1740 ml Intake Oral 1740 ml # Voids 3 General Appearance: Alert, Cooperative, No acute distress HEENT: Atraumatic, PERRLA, EOMI, Mucous membr. moist/pink Neck: Supple Lungs: Clear to auscultation, Normal air movement Cardiovascular: Regular rate, Normal S1, Normal S2, No murmurs, Gallops, Rubs Abdomen: Normal bowel sounds, Soft, No tenderness Neuro: Cranial nerves 3-12 NL Psych/Mental Status: Mental status NL Medications Current Medications Medications Dose Ordered Sig/Erlinda Route Start Time Stop Time Status Last Admin Dose Admin Levothyroxine Sodium 125 mcg DAILY PO 07/22/24 10:00 07/22/24 09:08 125 MCG Sodium Chloride 10 ml Q8HR IV 07/21/24 22:00 07/23/24 06:00 10 ML Docusate Sodium 100 mg BIDPRN PRN PO 07/21/24 19:00 Acetaminophen 650 mg Q6HP PRN PO 07/21/24 19:00 Acetaminophen/ Hydrocodone Bitart 1 tab Q4HP PRN PO 07/21/24 19:00 07/22/24 09:26 1 TAB Hydromorphone HCl 0.5 mg Q4HP PRN IV 07/21/24 19:00 Ondansetron HCl 4 mg Q4HP PRN IV 07/21/24 19:00 Enoxaparin Sodium 40 mg DAILY SC 07/22/24 10:00 07/22/24 09:09 40 MG Nitroglycerin 0.4 mg Q5MINP PRN SL 07/21/24 19:00 Morphine Sulfate 2 mg Q30M PRN IV 07/21/24 19:00 Atorvastatin Calcium 40 mg HS PO 07/22/24 22:00 07/22/24 21:33 40 MG Aspirin 81 mg DAILY PO 07/23/24 10:00 Laboratory Results Laboratory Tests 07/23/24 06:09 Chemistry Test 07/23/24 06:09 Albumin 4.2 g/dL (3.2-4.8) Calcium Level 10.3 mg/dL (8.7-10.4) Total Protein 6.4 g/dL (5.7-8.2) LFT Test 07/23/24 06:09 Alanine Aminotransferase (ALT) 17 U/L (7-40) Alkaline Phosphatase 56 U/L (46-116) Aspartate Amino Transferase (AST) 17 U/L (13-40) Total Bilirubin 0.6 mg/dL (0.2-1.0) Assessment/Plan Assessment/Plan Chest pain to back rule out ACS Hypothyroidism Plan: Continuing current management. Waiting for physician assistant primary care to see the patient. We will follow up with echo. Continuing with Synthroid. Waiting for stress test to be done. This medical document was created using an electronic medical record system with [employer] computerized dictation system. Although this document has been carefully reviewed, there may still be some phonetic and typographical errors. These areas are purely typographical due to imperfections of the software programs, and do not reflect any compromise in the patient's medical care. Plan discussed with: Patient Date of Service: Jul 23, 2024 Billing Provider: KAMILA OROPEZA MD Common Visit Codes: [id number] INP/OBS CARE(HIGH) KAMILA OROPEZA MD Jul 23, 2024 11:25
[2024-07-23] MEDS: ASPirin 81 mg TAB PO SCH (15:29)
--- NOTE | 2024-07-23 23:05 | DVHPN2 ---
Progress Note - Dictate Date Seen: Jul 23, 2024 Medical Necessity Reason Pt with a Central, PICC or Fol: No Subjective Patient was seen and evaluated in follow up. Patient is still c/o chest pain. Transthoracic echocardiogram reveals EF 65%. Patient undergoing stress test today. Free T 3 2.18. TSH 16.18. CBC and CMP are unremarkable. vital signs Vital Sign Date Time Temp Pulse Resp B/P (MAP) Pulse Ox O2 Delivery O2 Flow Rate FiO2 07/23/24 21:00 99.4 77 18 113/84 (94) 95 99.4 07/23/24 08:00 Room Air* 0 21 Total Intake and Output 07/22/24 07/22/24 07/23/24 15:00 23:00 07:00 Intake Total 1100 ml 640 ml Balance 1100 ml 640 ml medications Current Medications Medications Dose Ordered Sig/Erlinda Route Start Time Stop Time Status Last Admin Dose Admin Levothyroxine Sodium 125 mcg DAILY PO 07/22/24 10:00 07/23/24 15:29 125 MCG Sodium Chloride 10 ml Q8HR IV 07/21/24 22:00 07/23/24 14:50 10 ML Docusate Sodium 100 mg BIDPRN PRN PO 07/21/24 19:00 Acetaminophen 650 mg Q6HP PRN PO 07/21/24 19:00 Acetaminophen/ Hydrocodone Bitart 1 tab Q4HP PRN PO 07/21/24 19:00 07/22/24 09:26 1 TAB Hydromorphone HCl 0.5 mg Q4HP PRN IV 07/21/24 19:00 Ondansetron HCl 4 mg Q4HP PRN IV 07/21/24 19:00 Enoxaparin Sodium 40 mg DAILY SC 07/22/24 10:00 07/22/24 09:09 40 MG Nitroglycerin 0.4 mg Q5MINP PRN SL 07/21/24 19:00 Morphine Sulfate 2 mg Q30M PRN IV 07/21/24 19:00 Atorvastatin Calcium 40 mg HS PO 07/22/24 22:00 07/22/24 21:33 40 MG Aspirin 81 mg DAILY PO 07/23/24 10:00 07/23/24 15:29 81 MG objective GENERAL: Alert and oriented x 3. No acute distress. EYES: PERRL, EOMI. Anicteric. HENT: Moist mucous membranes. LUNGS: Clear to auscultation bilaterally. CARDIOVASCULAR: Regular rate and rhythm. ABDOMEN: Soft, nontender and nondistended. EXTREMITIES: No edema. NEUROLOGIC: No focal neurological deficits. SKIN: Warm, dry. laboratory and microbiology Laboratory Tests 07/23/24 06:09 Test 07/23/24 06:09 Range/Units Serum Glucose 94 74-106 mg/dL Problem List Chest pain. Dyslipidemia. History of pulmonary embolism. History of Graves disease status post radioactive iodine. Uncontrolled thyroid function. Assessment/Plan Continued all current supportive medical care. Morphine and [place] for pain management. Aspirin, Lipitor. DVT prophylactics. Additional plan as per the hospital course. Plan discussed with: Patient DANIEL ARRIOLA MD Jul 23, 2024 23:05
[2024-07-24] VITALS (10 sets, daily range): BP systolic 98–132; BP diastolic 64–89; PULSE 58–86; RESP 16–18; TEMP 97.2–98.5; O2SAT 96–99
[2024-07-24 06:19] LABS: Basophils # (auto) 0 10 ^3/uL (0-0.2); Basophils % (auto) 0.3 % (0.0-2.0); Eosinophils # (auto) 0.1 10 ^3/uL (0-0.8); Eosinophils % (auto) 2.3 % (0.0-7.0); Hematocrit 42.1 % (36.0-46.0); Hemoglobin 14.2 g/dL (12.2-16.2); Lymphocytes # (auto) 2.3 10 ^3/uL (0.4-5.4); Lymphocytes % (auto) 37.9 % (10.0-50.0); Mean Corpuscular Hemoglobin 30.5 pg (28.0-32.0); Mean Corpuscular Hgb Conc. 33.7 g/dL (32.0-36.0); Mean Corpuscular Volume 90.4 fL (80.0-100.0); Monocytes # (auto) 0.5 10 ^3/uL (0-1.3); Monocytes % (auto) 8.2 % (0.0-12.0); Neutrophils # (auto) 3.1 10 ^3/uL (1.6-8.6); Neutrophils % (auto) 51.3 % (37.0-80.0); Platelet Count (auto) 352 10^3/uL (140-450); Red Blood Cells 4.66 10^6/uL (4.0-5.20); Red Cell Distribution Width 13.4 % (11.8-14.3)
[2024-07-24 06:29] LABS: Alanine Aminotransferase 17 U/L (7-40); Albumin 4.4 g/dL (3.2-4.8); Alkaline Phosphatase 56 U/L (46-116); Anion Gap 8 (5-15); Aspartate Aminotransferase 19 U/L (13-40); BUN/Creatinine Ratio 29.1 (10.0-20.0); Bilirubin, Total 0.5 mg/dL (0.2-1.0); Carbon Dioxide 28 mmol/L (20-31); Chloride 106 mmol/L (98-107); Glucose 97 mg/dL (74-106); Potassium 4.3 mmol/L (3.5-5.1); Sodium 142 mmol/L (136-145); Total Protein 6.6 g/dL (5.7-8.2)
[2024-07-24 06:34] LABS: Blood Urea Nitrogen 23 mg/dL (9-23)
--- NOTE | 2024-07-24 08:13 | DVHSR ---
APPROVED REPORT Exam: Nuclear Stress Test Indication: Chest pain Stress Tech: Dorothy Harris Ht: 5 ft 2 in Wt: 155 lbs BSA: 1.72 m2 BMI: 28.34 Medical History Medical History: DLD, PE, GRAVES DISEASE, EF 65%, NEGATIVE TROPS Stress Test Details Stress Test: Pharmacologic stress testing performed using 0.4 mg of regadenoson per 5 mL given IV ov er 10 seconds. Reason for pharmacologic stress test: CHEST PAIN. HR Resting HR: 75 bpmMax Heart Rate (APMHR): 167.345122 bpm Max HR Achieved: 121 bpmTarget HR (85% APMHR): 141.024974 bpm % of APMHR: 72.46 Recovery HR: 98 bpm BP Resting BP: 123/65 mmHg Recovery BP: 116/78 mmHg ECG Resting ECG: Sinus Rhythm Clinical Reason for Termination: Completed protocol Nurse Comments Received patient from Nuclear Medicine. Patient is A&O x4 and on RA. FOR VS please refer back to st ress test assessment documentation. Patient is connected to driller portable. See cardio-neuro proce dural notes for addtional details. PIV flushes well. Reviewed POC and patient verbalizes understand ing and consents to test. Lexiscan stress test performed per protocol. radiology technologist administered the Cardiolite. Pat ient tolerated well and vitals returned to baseline. Transferred to Nuclear Medicine via wheelchair with tech in stable condition. Stress ECG Conclusion lvef 78% normal perfusion scan no severe ischemia noted NM EXAM: Myocardial Perfusion REST/STRESS Imaging Protocol: Rest Tc-99m/Stress Tc-99m 1 day Resting Data Rest SPECT myocardial perfusion imaging was performed in supine position 60 minutes following the int ravenous injection of 10.0 mCi of Tc-99m Sestamibi. Time of rest injection: 08:49 Date: 07/23/2024 Time of rest imagin:49 Date: 07/23/2024 Administration Route: IV Administration Site: Left AC Pharmacologic Stress Pharmacologic stress test was performed by injecting Regadenoson 0.4 mg IV push followed by the intra venous injection of 30.0 mCi of Tc-99m Sestamibi. Time of stress injection: 13:51 Date: 07/23/2024 Time of stress imagin:51 Date: 07/23/2024 Administration Route: IV Administration Site: Left AC Gated Stress SPECT was performed 60 minutes after stress injection. The images were gated to evaluate regional wall motion and calculate left ventricular ejection fracti on. Stress only was performed in the Supine position. Nuclear Conclusion Nuclear Findings: negative for ischemia lvef 78% normal perfusion scan no severe ischemia noted
--- NOTE | 2024-07-24 22:22 | DVHPN2 ---
Subjective The patient seen and examined at bedside. status post stress test today. Reviewed: Care Plan, H&P, Labs, Medications, Previous Orders, Radiology Changes from previous H/P or p: No Changes Objective Vitals Vital Signs Date Time Temp Pulse Resp B/P (MAP) Pulse Ox O2 Delivery O2 Flow Rate FiO2 07/24/24 21:00 98.5 86 18 132/89 (103) 96 98.5 07/24/24 08:00 Room Air* 0 21 Intake/Output Intake and Output 07/24/24 06:59 Intake Total 386 ml Balance 386 ml Intake Oral 386 ml # Voids 5 # Bowel Movements 2 General Appearance: Alert, Cooperative, No acute distress HEENT: Atraumatic, PERRLA, EOMI, Mucous membr. moist/pink Neck: Supple Lungs: Clear to auscultation, Normal air movement Cardiovascular: Regular rate, Normal S1, Normal S2, No murmurs, Gallops, Rubs Abdomen: Normal bowel sounds, Soft, No tenderness Neuro: Cranial nerves 3-12 NL Psych/Mental Status: Mental status NL Medications Current Medications Medications Dose Ordered Sig/Erlinda Route Start Time Stop Time Status Last Admin Dose Admin Levothyroxine Sodium 125 mcg DAILY PO 07/22/24 10:00 07/24/24 11:27 125 MCG Sodium Chloride 10 ml Q8HR IV 07/21/24 22:00 07/24/24 17:55 10 ML Docusate Sodium 100 mg BIDPRN PRN PO 07/21/24 19:00 Acetaminophen 650 mg Q6HP PRN PO 07/21/24 19:00 Acetaminophen/ Hydrocodone Bitart 1 tab Q4HP PRN PO 07/21/24 19:00 07/22/24 09:26 1 TAB Hydromorphone HCl 0.5 mg Q4HP PRN IV 07/21/24 19:00 Ondansetron HCl 4 mg Q4HP PRN IV 07/21/24 19:00 Enoxaparin Sodium 40 mg DAILY SC 07/22/24 10:00 07/24/24 11:27 40 MG Nitroglycerin 0.4 mg Q5MINP PRN SL 07/21/24 19:00 Morphine Sulfate 2 mg Q30M PRN IV 07/21/24 19:00 Atorvastatin Calcium 40 mg HS PO 07/22/24 22:00 4/28/25 23:16 40 MG Aspirin 81 mg DAILY PO 07/23/24 10:00 07/24/24 11:26 81 MG Laboratory Results Laboratory Tests 07/24/24 05:20 Chemistry Test 07/24/24 05:20 Albumin 4.4 g/dL (3.2-4.8) Calcium Level 10.0 mg/dL (8.7-10.4) Total Protein 6.6 g/dL (5.7-8.2) LFT Test 07/24/24 05:20 Alanine Aminotransferase (ALT) 17 U/L (7-40) Alkaline Phosphatase 56 U/L (46-116) Aspartate Amino Transferase (AST) 19 U/L (13-40) Total Bilirubin 0.5 mg/dL (0.2-1.0) Labs and/or images reviewed: Labs reviewed by me Assessment/Plan Assessment/Plan Chest pain to back rule out ACS Hypothyroidism Plan: Continuing current management. We will follow up with echo. Continuing with Synthroid. Waiting for stress test to be read by crew chief, Dr Flynn. Discharge if OK with dr Flynn. This medical document was created using an electronic medical record system with [employer] computerized dictation system. Although this document has been carefully reviewed, there may still be some phonetic and typographical errors. These areas are purely typographical due to imperfections of the software programs, and do not reflect any compromise in the patient's medical care. Plan discussed with: Patient My Orders Orders - KAMILA OROPEZA MD Procedure Category Date Status Time Discharge DISCHARGE 07/24/24 Transmitted 12:57 Date of Service: Jul 24, 2024 Billing Provider: KAMILA OROPEZA MD Common Visit Codes: [id number] INP/OBS CARE(HIGH) KAMILA OROPEZA MD Jul 24, 2024 22:22
--- NOTE | 2024-07-24 23:56 | DVHPN2 ---
Progress Note - Dictate Date Seen: Jul 24, 2024 Medical Necessity Reason Pt with a Central, PICC or Fol: No Subjective Patient was seen and evaluated in follow up. Patient reports improvement in chest pain. Stress test is negative for ischemia, EF 78%. CBC and CMP are unremarkable. vital signs Vital Sign Date Time Temp Pulse Resp B/P (MAP) Pulse Ox O2 Delivery O2 Flow Rate FiO2 07/24/24 21:00 98.5 86 18 132/89 (103) 96 98.5 07/24/24 08:00 Room Air* 0 21 Total Intake and Output 07/23/24 07/23/24 07/24/24 15:00 23:00 07:00 Intake Total 236 ml 150 ml Balance 236 ml 150 ml medications Current Medications Medications Dose Ordered Sig/Erlinda Route Start Time Stop Time Status Last Admin Dose Admin Levothyroxine Sodium 125 mcg DAILY PO 07/22/24 10:00 07/24/24 11:27 125 MCG Sodium Chloride 10 ml Q8HR IV 07/21/24 22:00 07/24/24 22:35 10 ML Docusate Sodium 100 mg BIDPRN PRN PO 07/21/24 19:00 Acetaminophen 650 mg Q6HP PRN PO 07/21/24 19:00 Acetaminophen/ Hydrocodone Bitart 1 tab Q4HP PRN PO 07/21/24 19:00 07/22/24 09:26 1 TAB Hydromorphone HCl 0.5 mg Q4HP PRN IV 07/21/24 19:00 Ondansetron HCl 4 mg Q4HP PRN IV 07/21/24 19:00 Enoxaparin Sodium 40 mg DAILY SC 07/22/24 10:00 07/24/24 11:27 40 MG Nitroglycerin 0.4 mg Q5MINP PRN SL 07/21/24 19:00 Morphine Sulfate 2 mg Q30M PRN IV 07/21/24 19:00 Atorvastatin Calcium 40 mg HS PO 07/22/24 22:00 07/24/24 22:34 40 MG Aspirin 81 mg DAILY PO 07/23/24 10:00 07/24/24 11:26 81 MG objective GENERAL: Alert and oriented x 3. No acute distress. EYES: PERRL, EOMI. Anicteric. HENT: Moist mucous membranes. LUNGS: Clear to auscultation bilaterally. CARDIOVASCULAR: Regular rate and rhythm. ABDOMEN: Soft, nontender and nondistended. EXTREMITIES: No edema. NEUROLOGIC: No focal neurological deficits. SKIN: Warm, dry. laboratory and microbiology Laboratory Tests 07/24/24 05:20 Test 07/24/24 05:20 Range/Units Serum Glucose 97 74-106 mg/dL Problem List Chest pain. Dyslipidemia. History of pulmonary embolism. History of Graves disease status post radioactive iodine. Uncontrolled thyroid function. Assessment/Plan Continued all current supportive medical care. Morphine and [place] for pain management. Aspirin, Lipitor. DVT prophylactics. Additional plan as per the hospital course. Dietary Evaluation Review Comments: 1. Continue Cardiac diet as tolerated 2. Encourage good oral intake of meals >75% 3. Monitor wt trends, daily wt's appreciated Expected Outcomes/Goals: Maintain adequate nutrition. Plan discussed with: Patient DANIEL ARRIOLA MD Jul 24, 2024 23:56
[2024-07-25] VITALS (7 sets, daily range): BP systolic 102–125; BP diastolic 57–80; PULSE 60–86; RESP 17–20; TEMP 36.7; O2SAT 95–96
[2024-07-25 06:04] LABS: Basophils # (auto) 0 10 ^3/uL (0-0.2); Basophils % (auto) 0.5 % (0.0-2.0); Eosinophils # (auto) 0.1 10 ^3/uL (0-0.8); Eosinophils % (auto) 2.6 % (0.0-7.0); Hematocrit 41.9 % (36.0-46.0); Hemoglobin 14.1 g/dL (12.2-16.2); Lymphocytes # (auto) 2.6 10 ^3/uL (0.4-5.4); Lymphocytes % (auto) 46.6 % (10.0-50.0); Mean Corpuscular Hemoglobin 30.6 pg (28.0-32.0); Mean Corpuscular Hgb Conc. 33.7 g/dL (32.0-36.0); Mean Corpuscular Volume 90.8 fL (80.0-100.0); Monocytes # (auto) 0.4 10 ^3/uL (0-1.3); Monocytes % (auto) 7.8 % (0.0-12.0); Neutrophils # (auto) 2.4 10 ^3/uL (1.6-8.6); Neutrophils % (auto) 42.5 % (37.0-80.0); Nucleated Red Blood Cells % 0.1 %; Platelet Count (auto) 330 10^3/uL (140-450); Red Blood Cells 4.61 10^6/uL (4.0-5.20); Red Cell Distribution Width 13.4 % (11.8-14.3); White Blood Cell 5.6 10^3/uL (4.4-10.8)
[2024-07-25 06:14] LABS: Potassium 4.2 mmol/L (3.5-5.1)
[2024-07-25 06:23] LABS: Carbon Dioxide 28 mmol/L (20-31)
[2024-07-25 06:24] LABS: Calcium 9.9 mg/dL (8.7-10.4)
[2024-07-25 06:28] LABS: Glucose 81 mg/dL (74-106)
[2024-07-25 06:29] LABS: Alkaline Phosphatase 53 U/L (46-116); BUN/Creatinine Ratio 34.2 (10.0-20.0); Total Protein 6.5 g/dL (5.7-8.2)
[2024-07-25 06:30] LABS: Albumin 4.2 g/dL (3.2-4.8)
[2024-07-25 06:31] LABS: Alanine Aminotransferase 20 U/L (7-40); Aspartate Aminotransferase 24 U/L (13-40); Bilirubin, Total 0.4 mg/dL (0.2-1.0); Blood Urea Nitrogen 25 mg/dL (9-23); Chloride 108 mmol/L (98-107)
[2024-07-25 06:36] LABS: Anion Gap 7 (5-15); Sodium 143 mmol/L (136-145)
--- NOTE | 2024-07-25 23:12 | DVHPN2 ---
Progress Note - Dictate Date Seen: Jul 25, 2024 Medical Necessity Reason Pt with a Central, PICC or Fol: No Subjective Patient was seen and evaluated in follow up. Patient has no new complaints at this time. Patient denies any cardiac symptoms. Patient is cardiac stable for discharge. vital signs Vital Sign Date Time Temp Pulse Resp B/P (MAP) Pulse Ox O2 Delivery O2 Flow Rate FiO2 07/25/24 11:14 36.7 64 18 95 07/25/24 09:00 125/80 (95) 07/25/24 08:00 Room Air* 0 21 Total Intake and Output 07/24/24 07/24/24 07/25/24 15:00 23:00 07:00 Intake Total 680 ml 400 ml Balance 680 ml 400 ml medications Current Medications Medications Dose Ordered Sig/Erlinda Route Start Time Stop Time Status Last Admin Dose Admin Levothyroxine Sodium 125 mcg DAILY PO 07/22/24 10:00 07/25/24 09:34 125 MCG Sodium Chloride 10 ml Q8HR IV 07/21/24 22:00 07/25/24 06:29 10 ML Docusate Sodium 100 mg BIDPRN PRN PO 07/21/24 19:00 Acetaminophen 650 mg Q6HP PRN PO 07/21/24 19:00 Acetaminophen/ Hydrocodone Bitart 1 tab Q4HP PRN PO 07/21/24 19:00 07/22/24 09:26 1 TAB Hydromorphone HCl 0.5 mg Q4HP PRN IV 07/21/24 19:00 Ondansetron HCl 4 mg Q4HP PRN IV 07/21/24 19:00 Enoxaparin Sodium 40 mg DAILY SC 07/22/24 10:00 07/25/24 09:35 40 MG Nitroglycerin 0.4 mg Q5MINP PRN SL 07/21/24 19:00 Morphine Sulfate 2 mg Q30M PRN IV 07/21/24 19:00 Atorvastatin Calcium 40 mg HS PO 07/22/24 22:00 07/24/24 22:34 40 MG Aspirin 81 mg DAILY PO 07/23/24 10:00 07/25/24 09:34 81 MG objective GENERAL: Alert and oriented x 3. No acute distress. EYES: PERRL, EOMI. Anicteric. HENT: Moist mucous membranes. LUNGS: Clear to auscultation bilaterally. CARDIOVASCULAR: Regular rate and rhythm. ABDOMEN: Soft, nontender and nondistended. EXTREMITIES: No edema. NEUROLOGIC: No focal neurological deficits. SKIN: Warm, dry. laboratory and microbiology Laboratory Tests 07/25/24 05:15 Test 07/25/24 05:15 Range/Units Serum Glucose 81 74-106 mg/dL Problem List Chest pain. Dyslipidemia. History of pulmonary embolism. History of Graves disease status post radioactive iodine. Uncontrolled thyroid function. Assessment/Plan Continued all current supportive medical care. Morphine and [place] for pain management. Aspirin, Lipitor. DVT prophylactics. Additional plan as per the hospital course. Dietary Evaluation Review Comments: 1. Continue Cardiac diet as tolerated 2. Encourage good oral intake of meals >75% 3. Monitor wt trends, daily wt's appreciated Expected Outcomes/Goals: Maintain adequate nutrition. Plan discussed with: Patient DANIEL ARRIOLA MD Jul 25, 2024 12:59
== END 2024-07-25 14:00 | disposition home or self-care (01) | DRG 311 ==
LOC: ER 14:57 → OVERFLOW 18:47 → EAST 22:38
PROVIDERS: ADMIT Internal Medicine; ATTEND Internal Medicine
DX: I24.9 Acute ischemic heart disease, unspecified (principal); E03.9 Hypothyroidism, unspecified; E78.5 Hyperlipidemia, unspecified; M25.512 Pain in left shoulder; Z86.711 Personal history of pulmonary embolism; Z79.899 Other long term (current) drug therapy
CPT/HCPCS: 36415; 71045; 78452; 80053; 80061; 80307; 83036; 83605; 83735; 83880; 84439; 84443; 84481; 84484; 84702; 85025; 85379; 93005; 93017; 93306; G0378